=== PATIENT | female | born 1995 | race African-American/Black ===

== ENCOUNTER 2016-08-13 16:51 | Emergency (ER) | payer BC ==
[~2016-08-13] VITALS: Ht 175.3 cm; Wt 76.6 kg
[2016-08-13 17:02] VITALS: TEMP 98.2
[2016-08-13 17:55] LABS: BASO % 0.3 % (0.0-2.0); EOS # 0.2 (0.0-0.7); EOS % 1.8 % (0-4.0); GRAN # 5.1 (1.4-6.5); GRAN % 58.2 % (42.2-75.2); HEMATOCRIT 41.3 % (35.0-45.0); HEMOGLOBIN 14.3 g/dl (12.0-15.0); LYMPH # 2.8 (1.2-3.4); LYMPH % 31.4 % (20.0-51.0); MEAN CELL VOLUME 86 fl (80.0-95.0); MEAN CORPUSCULAR HEMOGLOBIN 30 pg (26.0-32.0); MEAN CORPUSCULAR HGB CONC 35 g/dl (33.0-37.0); MEAN PLATELET VOLUME 10.3 fl (7.4-10.4); MONO # 0.7 (0.1-0.6); PLATELET COUNT 301 K/mm3 (130-400); RED BLOOD COUNT 4.82 M/mm3 (4.10-5.30); REDCELL DISTRIBUTION WIDTH-CV 13.3 % (11.5-14.5); WHITE BLOOD COUNT 8.9 K/mm3 (4.8-10.8)
[2016-08-13 20:10] VITALS: BP 113/93; PULSE 92
== END 2016-08-13 20:12 | disposition home or self-care (01) ==
LOC: COL.ER 16:51
PROVIDERS: Emergency Medicine
DX: O03.89 Complete or unspecified spontaneous abortion with other complications (principal); N85.9 Noninflammatory disorder of uterus, unspecified

== ENCOUNTER 2017-10-01 18:44 | Emergency (ER) | payer BC ==
[~2017-10-01] VITALS: Ht 175.3 cm; Wt 63.6 kg
[2017-10-01 18:53] VITALS: BP 119/72; PULSE 89; TEMP 97.5
[2017-10-01] MEDS ORDERED: ANUSOL HC CREAM30 GM TP (19:42)
== END 2017-10-01 19:54 | disposition home or self-care (01) ==
LOC: COL.ER 18:44
DX: K64.8 Other hemorrhoids (principal)